=== PATIENT | female | born 1995 | race Caucasian/White ===

== ENCOUNTER 2023-12-01 09:58 | Day surgery (SDC) | payer BC, OTHER ==
[2023-12-01] MEDS: Sodium Chloride 0.9% 1,000 ML IV SCH (10:52)
[2023-12-01] MEDS ORDERED: Propofol 200 MG/20 ML SDV ONE (11:25)
[2023-12-01] MEDS ORDERED: Midazolam 1 MG/ML 2 ML SDV ONE (11:26)
[2023-12-01] MEDS ORDERED: fentaNYL 50 MCG/ML SDV ONE (11:26)
== END 2023-12-01 14:07 | disposition home or self-care (01) ==
LOC: JP.SDS 09:58
PROVIDERS: ATTEND Surgery
DX: K92.2 Gastrointestinal hemorrhage, unspecified (principal)
CPT/HCPCS: 45380; 81025; 88305; 88341; 88342; J2250; J2704; J3010; J7030; 00811-QZ